=== PATIENT | female | born 1970 | race Caucasian/White ===

== ENCOUNTER 2019-11-29 19:54 | Emergency (ER) | payer BC ==
[~2019-11-29] VITALS: Ht 157.5 cm; Wt 78.0 kg
[2019-11-29 19:54] VITALS: BP_SYST 131
--- NOTE | 2019-11-29 19:54 | NUR ---
Patient triaged and placed in waiting room. VSS and patient appears in no acute distress at this time. Awaiting available bed, and MD notified of need for MSE.
--- NOTE | 2019-11-29 20:20 | NUR ---
ER Dr. AVINA at bedside examining patient.
[2019-11-29 20:55] LABS: BASOPHILS # (AUTO) 0.1 K/uL (0.0-0.2); BASOPHILS % (AUTO) 0.5 % (0.0-2.0); EOSINOPHILS # (AUTO) 0.2 K/uL (0.0-0.4); EOSINOPHILS % (AUTO) 1.5 % (0.0-4.0); HEMATOCRIT 41.7 % (36-48); HEMOGLOBIN 13.8 g/dL (12.0-16.0); LYMPHOCYTES # (AUTO) 2.4 K/uL (1.0-5.5); LYMPHOCYTES % (AUTO) 22.2 % (20.5-51.5); MEAN CORPUSCULAR HEMOGLOBIN 30 pg (27-31); MEAN CORPUSCULAR HGB CONC 33 % (32-36); MEAN CORPUSCULAR VOLUME 90 fL (79.0-98.0); MONOCYTES # (AUTO) 0.6 K/uL (0.0-1.0); MONOCYTES % (AUTO) 5.5 % (1.7-9.3); NEUTROPHILS # (AUTO) 7.6 K/uL (1.8-7.7); NEUTROPHILS % (AUTO) 70.3 % (40.0-70.0); PLATELET COUNT (AUTO) 233 K/uL (130-430); RED BLOOD CELL COUNT(AUTO) 4.64 MIL/uL (4.2-6.2); RED CELL DISTRIBUTION WIDTH 13.4 % (9.0-15.0); WHITE BLOOD COUNT (AUTO) 10.7 K/uL (4.8-10.8)
[2019-11-29 21:15] LABS: CALCIUM 9.7 mg/dL (8.4-11.0); CREATININE 0.68 mg/dL (0.55-1.30); POTASSIUM 3.8 mmol/L (3.5-5.1)
[2019-11-29 21:21] LABS: ALBUMIN 3.7 g/dL (3.4-4.8); TOTAL BILIRUBIN 0.6 mg/dL (0.0-1.0)
[2019-11-29 21:57] LABS: BILIRUBIN,URINE NEGATIVE (NEGATIVE); BLOOD, URINE 1+ (NEGATIVE); CLARITY/URINE CLEAR (CLEAR); COLOR,URINE YELLOW (YELLOW); GLUCOSE,URINE NEGATIVE (NEGATIVE); KETONES,URINE NEGATIVE (NEGATIVE); LEUKOCYTE ESTERASE ,URINE NEGATIVE (NEGATIVE); NITRITE, URINE NEGATIVE (NEGATIVE); PROTEIN URINE NEGATIVE (NEGATIVE); UROBILINOGEN,URINE 0.2 (0.2-1.0)
[2019-11-29 22:09] LABS: BACTERIA,URINE FEW /HPF (None Seen); RBC,URINE 0-3 /HPF (0-3); WBC,URINE NONE SEEN /HPF (0-3)
--- NOTE | 2019-11-29 23:04 | NUR ---
Patient to ER bed 4 to gown for evaluation. Side rails up. Report given to Ai VALDES.
--- NOTE | 2019-11-29 23:05 | NUR ---
PT AAO AND AMBULATORY C/O ABDOMINAL PAIN WITH NAUSEA AND REPORTS PAIN 8/10 CURRENTLY. PT REPORTS WORSENING PAIN SINCE THURSDAY. PT HAS HISTORY OF GALL STONES.
--- NOTE | 2019-11-29 23:10 | NUR ---
PT LABS DRAWN, URINE COMPLETE, AND U/S DONE. TO RE-EVALUATE PT.
--- NOTE | 2019-11-29 23:25 | NUR ---
DR. AVINA RE-EVALUATING PT STATUS.
[2019-11-29] MEDS ORDERED: KETOROLAC TROMETHAMINE 60 MG/2 ML VIAL IM ONE (23:30)
[2019-11-29] MEDS ORDERED: ONDANSETRON 4 MG ODT TAB PO ONE (23:30)
--- NOTE | 2019-11-30 00:15 | NUR ---
PT RESTING QUIETLY, REPORTS PAIN IMPROVED 2/10.
--- NOTE | 2019-11-30 00:27 | NUR ---
Patient given written and verbal discharge instructions and verbalizes understanding. DR. FABRICE TOM MD discussed with patient the results and treatment provided. Patient in stable condition. ID arm band removed. Rx of NORCO, MOTRIN, AND ZOFRAN given. Patient educated on pain management and to follow up with PMD. Pain Scale 2/10. Opportunity for questions provided and answered. Medication side effect fact sheet provided.
[2019-11-30 00:28] VITALS: BP_SYST 131
== END 2019-11-30 00:28 | disposition home or self-care (01) ==
LOC: SED 19:54
DX: K80.20 Calculus of gallbladder without cholecystitis without obstruction (principal); Z88.2 Allergy status to sulfonamides
CPT/HCPCS: 36415; 76705; 80053; 81000; 81025; 83690; 85025; 93005; 96372; 99285; J1885; Q0162